=== PATIENT | male | born 1970 | race Caucasian/White ===

== ENCOUNTER → 2021-02-19 | Day surgery (SDC) | payer BC, OTHER ==
[~2021-02-19] VITALS: Ht 180.3 cm; Wt 104.3 kg
[~2021-02-19] MED LIST: ASPIRIN 81 MG CHEW (CHILDREN'S ASA) ONE; ASPIRIN 81 MG CHEW (CHILDREN'S ASA) PO SCH; ASPIRIN 81 MG CHEW (CHILDREN'S ASA) PO STA; ATROPINE INJECTION 1 MG/10 ML SYR (ABBOTT) ONE; CLOPIDOGREL 300 MG (PLAVIX) TABLET PO STA; HEParin (CATH LAB) 1,000 ML IV ONE; HEParin (CATH LAB) 2,000 ML IV ONE; HEParin 1000 UNIT/ML (10ML VIAL) FOR BOLUS IV ONE; HEParin 1000 UNIT/ML (10ML VIAL) FOR BOLUS IV SCH; HEParin 1000 UNIT/ML (10ML VIAL) FOR BOLUS ONE; HEParin DRIP 25000 UNIT/500ML 500 ML IV ONE; KCL 20 MEQ TAB (K-DUR) PO ONE; LIDOCAINE 1% INJ 20 ML 20 ML VIAL ONE; MIDAZOLAM 5 MG/5 ML (VERSED) VIAL ONE; NITRO DRIP 25000 MCG/D5W 250 ML IV ONE; NITROGLYCERIN 0.4 MG SL TABS BTL 25'S SL ONE; NITROGLYCERIN 0.4 MG SL TABS BTL 25'S SL PRN; NS IV 1000 ML 1,000 ML IV SCH; NS IV 1000 ML 1,000 ML IV STA; NS IV 1000 ML 1,000 ML ONE; PATIENT MAY USE OWN MEDS, ALL PO SCH; RT-ALBUTEROL/IPRATROPIUM 3 ML (DUONEB) VIAL INH ONE; fentaNYL INJ 100 MCG/2 ML AMP ONE; meTOprolol 5 MG/5 ML (LOPRESSOR) VIAL IV STA; meTOprolol 5 MG/5 ML (LOPRESSOR) VIAL ONE; meTOprolol TARTRATE 25 MG (LOPRESSOR) TABLET PO SCH; methylPREDNISolone 125 MG (Solu-MEDROL) VIAL IVP STA; morphine INJ 10 MG/ML 1ML (SYR OR VIAL) IVP STA
--- NOTE | 2021-02-19 04:43 | ED Dyspnea ---
General Chief Complaint: Respiratory Problems Stated Complaint: SOA Nursing Triage Note: PT AMBULATE TO ROOM FS05 WITH C/O SOB X1 MONTH AND NAUSEA. PT STATES HE WAS GOING TO GO THE CLINIC TOMORROW. PT REPORTS FEVER X3 DAYS AGO OF 99.9. Source of Information: Patient History of Present Illness Date Seen by Provider: February 19, 2021 Time Seen by Provider: 03:53 Initial Comments 50 yo male presenting to the ED with complaints of shortness of breath and coughing that has been going on for over a month. He has been having some nausea and felt like he had a fever few days ago. This morning he woke up around 3 AM and was having more difficulty breathing with nausea and pressure on his chest and burning in his chest. He felt like he could not catch his breath. He has been trying to quit smoking and cut down from 1 pack a day to a pack a month. He had a history of high blood pressure in the past but has not been on medicine for years. He does not have a primary care provider. His only allergy is to penicillin which causes a rash. He does not take any medications on a routine or regular basis. He has been coughing up some thick white sputum. He works at [employer] and has had ill contacts there since he works with the public. He lives by himself and has no close contacts that have been ill. Severity: Severe Prior Episodes/Possible Cause: No Prior Episodes Modifying Factors: Worse With Activity, Worse With Coughing Associated Symptoms: Anxiety, Chest Pain, Cough, Pain (burning and pressure in chest), Wheezing Allergies and Home Medications Allergies Coded Allergies: Penicillins (Verified Allergy, Unknown, Rash, 02/19/21) Patient Home Medication List Home Medication List Reviewed: Yes Review of Systems Review of Systems Constitutional: chills, diaphoresis, fever, malaise EENTM: hoarseness Respiratory: cough, dyspnea on exertion, phlegm, short of breath; No stridor; wheezing Cardiovascular: see HPI, chest pain (burning and pressure) Gastrointestinal: nausea; No vomiting Genitourinary: no symptoms reported Musculoskeletal: no symptoms reported Skin: no symptoms reported Psychiatric/Neurological: No Symptoms Reported Endocrine: No Symptoms Reported Hematologic/Lymphatic: No Symptoms Reported Past Ijznqfn-Jbcxhq-Ffchqy Hx Past Med/Social Hx: Reviewed Nursing Past Med/Soc Hx Patient Social History Alcohol Use: Denies Use Smoking Status: Current Everyday Smoker Type Used: Cigarettes 2nd Hand Smoke Exposure: Yes Recent Infectious Disease Expo: No Recent Hopitalizations: No Seasonal Allergies Seasonal Allergies: No Past Medical History Surgeries: Yes Adenoidectomy, Gallbladder, Tonsillectomy Respiratory: No Cardiac: Yes Hypertension Neurological: No Genitourinary: No Gastrointestinal: No Musculoskeletal: No Endocrine: No HEENT: No Cancer: No Psychosocial: No Integumentary: No Blood Disorders: No Family Medical History Reviewed and Corrections made Heart Disease, CAD Under 55 Years Old Physical Exam Vital Signs Vital Signs - First Documented 02/19/21 02/19/21 03:58 04:22 Temp 36.8 Pulse 107 Resp 18 B/P (MAP) 193/112 (139) Pulse Ox 94 O2 Delivery Room Air O2 Flow Rate 3.00 Capillary Refill : Less Than 3 Seconds Height, Weight, BMI Height: '" Weight: lbs. oz. kg; 32.00 BMI Method: General Appearance: Anxious, Mild Distress, Obese HEENT: PERRL/EOMI, Pharynx Normal Neck: Full Range of Motion, Normal Inspection, Non Tender, Supple; No Carotid Bruit Respiratory: Chest Non Tender, Decreased Breath Sounds, Rales (bases), Wheezing Cardiovascular: Regular Rate, Rhythm, No Murmur, Normal Peripheral Pulses Gastrointestinal: Normal Bowel Sounds, No Pulsatile Mass, Non Tender, Soft Rectal: Deferred Extremity: Normal Capillary Refill, No Calf Tenderness, No Pedal Edema Neurologic/Psychiatric: Alert, Oriented x3, cellar packer II-XII Norm as Tested Skin: Normal Color, Warm/Dry Lymphatic: No Adenopathy Focused Exam Lactate Level 02/19/21 04:16: Lactic Acid Level 1.06 Lactic Acid Level Laboratory Tests Test 02/19/21 04:16 Lactic Acid Level 1.06 MMOL/L (0.50-2.00) Progress/Results/Core Measures Results/Orders Lab Results Laboratory Tests Test 02/19/21 04:16 02/19/21 04:29 Range/Units White Blood Count 10.3 4.3-11.0 10^3/uL Red Blood Count 4.79 4.35-5.85 10^6/uL Hemoglobin 14.0 13.3-17.7 G/DL Hematocrit 42 40-54 % Mean Corpuscular Volume 88 80-99 FL Mean Corpuscular Hemoglobin 29 25-34 PG Mean Corpuscular Hemoglobin Concent 33 32-36 G/DL Red Cell Distribution Width 12.6 10.0-14.5 % Platelet Count 322 130-400 10^3/uL Mean Platelet Volume 9.3 7.4-10.4 FL Immature Granulocyte % (Auto) 0 % Neutrophils (%) (Auto) 66 42-75 % Lymphocytes (%) (Auto) 21 12-44 % Monocytes (%) (Auto) 10 0-12 % Eosinophils (%) (Auto) 3 0-10 % Basophils (%) (Auto) 1 0-10 % Neutrophils # (Auto) 6.8 1.8-7.8 X 10^3 Lymphocytes # (Auto) 2.1 1.0-4.0 X 10^3 Monocytes # (Auto) 1.0 0.0-1.0 X 10^3 Eosinophils # (Auto) 0.3 0.0-0.3 10^3/uL Basophils # (Auto) 0.1 0.0-0.1 10^3/uL Immature Granulocyte # (Auto) 0.0 0.0-0.1 10^3/uL Percent Immature Platelet Fraction 1.5 0.0-7.6 % Prothrombin Time 13.6 12.2-14.7 SEC INR Comment 1.0 0.8-1.4 Activated Partial Thromboplast Time 33 24-35 SEC Sodium Level 141 135-145 MMOL/L Potassium Level 3.3 L 3.6-5.0 MMOL/L Chloride Level 104 98-107 MMOL/L Carbon Dioxide Level 24 21-32 MMOL/L Anion Gap 13 5-14 MMOL/L Blood Urea Nitrogen 19 H 7-18 MG/DL Creatinine 1.22 0.60-1.30 MG/DL Estimat Glomerular Filtration Rate > 60 BUN/Creatinine Ratio 16 Glucose Level 121 H 70-105 MG/DL Lactic Acid Level 1.06 0.50-2.00 MMOL/L Calcium Level 8.7 8.5-10.1 MG/DL Corrected Calcium 8.9 8.5-10.1 MG/DL Magnesium Level 2.0 1.6-2.4 MG/DL Total Bilirubin 0.6 0.1-1.0 MG/DL Aspartate Amino Transf (AST/SGOT) 45 H 5-34 U/L Alanine Aminotransferase (ALT/SGPT) 40 0-55 U/L Alkaline Phosphatase 106 40-136 U/L Troponin I 2.98 *H <0.30 NG/ML C-Reactive Protein 3.15 H <0.50 MG/DL Pro-B-Type Natriuretic Peptide 4820.0 H <75.0 PG/ML Total Protein 7.4 6.4-8.2 GM/DL Albumin 3.8 3.2-4.5 GM/DL Blood Gas Puncture Site LT RADIAL Blood Gas Patient Temperature 36.7 Arterial Blood pH 7.43 7.37-7.43 Arterial Blood Partial Pressure CO2 37 35-45 MMHG Arterial Blood Partial Pressure O2 63 L 79-93 MMHG Arterial Blood HCO3 25 23-27 MMOL/L Arterial Blood Total CO2 25.7 21.0-31.0 MMOL/L Arterial Blood Oxygen Saturation 92 L 94-100 % Arterial Blood Base Excess 0.5 -2.5-2.5 MMOL/L Vasyl Test OK Blood Gas Ventilator Setting NO Blood Gas Inspired Oxygen 2L My Orders Orders - MEGHANN,TATY Moe MD Cbc With Automated Diff (02/19/21 04:05) Comprehensive Metabolic Panel (02/19/21 04:05) Blood Culture (02/19/21 04:05) Chest 1 View Ap/Pa Only (02/19/21 04:05) Albuterol/Ipra Inhalation Soln (Duoneb I (02/19/21 04:15) Magnesium (02/19/21 04:05) Ekg Tracing (02/19/21 04:05) O2 (02/19/21 04:05) Ed Iv/Invasive Line Start (02/19/21 04:05) Sputum Culture (02/19/21 04:05) Monitor-Rhythm Ecg Trace Only (02/19/21 04:05) Crp Fs (02/19/21 04:05) Lactic Acid Analyzer (02/19/21 04:05) Svn Small Volume Nebulizer (02/19/21 04:05) Troponin I Fs (02/19/21 04:05) Probnp Fs (02/19/21 04:05) Protime With Inr (02/19/21 04:05) Partial Thromboplastin Time (02/19/21 04:05) Arterial Blood Gas (02/19/21 04:05) Ns Iv 1000 Ml (Sodium Chloride 0.9%) (02/19/21 04:09) Methylprednisolone Sod Succ (Solu-Medrol (02/19/21 04:09) Nitroglycerin 0.4 Mg Btl 25's (Nitrostat (02/19/21 04:15) Aspirin Chewable Tablet (Baby Aspirin Ch (02/19/21 04:15) Aspirin Chewable Tablet (Baby Aspirin Ch (02/19/21 04:23) Metoprolol Tartrate Injection (Lopressor (02/19/21 04:23) Heparin Drip 30014 Unit/500ml (Heparin (02/19/21 04:30) Heparin (Bolus Per Protocol) (Heparin (B (02/19/21 04:23) Clopidogrel Tablet (Plavix Tablet) (02/19/21 04:28) Morphine Injection (Morphine Injection (02/19/21 04:35) Atropine Inj 1 Mg Syringe (Atropine Inj (02/19/21 05:01) Lidocaine 1% Inj 20 Ml (Xylocaine 1% Inj (02/19/21 05:01) Midazolam Injection (Versed Injection) (02/19/21 05:01) Fentanyl Inj (Sublimaze Injection) (02/19/21 05:01) Heparin (Bolus Per Protocol) (Heparin (B (02/19/21 05:01) Ns Iv 1000 Ml (Sodium Chloride 0.9%) (02/19/21 05:01) Nitro Drip 01904 Mcg/D5w (Nitroglycerin (02/19/21 05:01) Heparin (Pharmacy Customer Care Specialist) (Heparin (Pharmacy Customer Care Specialist)) (02/19/21 05:01) Nitroglycerin 0.4 Mg Btl 25's (Nitrostat (02/19/21 05:15) Medications Given in ED Current Medications Medications Dose Ordered Sig/Leslie Route Start Time Stop Time Status Last Admin Dose Admin Albuterol/ Ipratropium 3 ml ONCE ONCE INH 02/19/21 04:15 02/19/21 04:16 DC 02/19/21 04:24 3 ML Aspirin 81 mg STK-MED ONCE .ROUTE 02/19/21 04:15 02/19/21 04:23 DC 02/19/21 04:25 324 MG Heparin Sodium (Porcine) HEPARIN BOLUS ACS PROTOC... 0423 ONCE IV 02/19/21 04:23 02/19/21 04:28 DC 02/19/21 04:35 5,000 UNIT Nitroglycerin 0.4 mg STK-MED ONCE SL 02/19/21 04:15 02/19/21 04:23 DC 02/19/21 04:25 0.4 MG Vital Signs/I&O 02/19/21 02/19/21 02/19/21 03:58 04:22 04:55 Temp 36.8 Pulse 107 91 Resp 18 19 B/P (MAP) 193/112 (139) 168/102 Pulse Ox 94 94 O2 Delivery Room Air Nasal Cannula Nasal Cannula O2 Flow Rate 3.00 3.00 Blood Pressure Mean: 139 Progress Progress Note #1: Progress Note With patient having O2 sat 89 to 90% will order labs including blood cultures and lactic acid. Will place him on supplemental oxygen after obtaining an ABG. He is hypertensive and will check an EKG as well as cardiac enzymes with his complaint of chest pain and pressure. Order IV fluids for hydration and his tachycardia. DuoNeb breathing treatment for his shortness of breath and wheezing as well as hypoxia. Differential diagnosis includes pneumonia, COPD exacerbation, hypertensive crisis, myocardial infarction, congestive heart failure, Covid, pulmonary embolism Progress Note #2: Time: 04:13 Progress Note EKG obtained and shows ST elevation in leads V2 through V5. Patient continues to have chest pain and pressure in his chest. Add aspirin and nitroglycerin to the orders and verified with patient that he was ok with going to [facility] to see Cardiology. After confirming that the patient was okay with going to [place] for cardiology on the left the room to place orders for the aspirin, heparin, nitroglycerin, metoprolol. Page placed to Dr. Escoto at 0423 am and returned at 0425 am. He advised that he would prefer morphine for pain to the nitroglycerin since he would be ok with his blood pressure being a little higher. He requested Plavix, Heparin, Aspirin and will take pt to Pharm[facility]. On recheck of the patient he was feeling better on supplemental oxygen and after getting a single Nitroglycerin he has had improved pain in chest. Blood pressure still running high. Updated pt and nurses about the plan and orders from Dr. Escoto. EMS was contacted for transfer and Nursing Jewelry Enameler notified as well. Since pt had not been here before registration worked on getting his information to update his computer details. Progress Note #3: Time: 04:51 Progress Note Patient leaving with EMS for emergent transfer to [facility]. Progress Note #4: Time: 05:18 Progress Note CBC was not showing any acute significant abnormality and had normal platelets and Hgb/Hct. ABG shows pH 7.43, pCO2 37, pO2 63 on 2 Lpm with saturation 92%. Lactic acid of 1.06. On his chemistry his potassium was slightly low at 3.3. His creatinine was slightly elevated at 1.22. His troponin was elevated at 2.98 with a normal range less than 0.3. His proBNP was elevated to 4820. He also had an elevated CRP of 3.15. His coags were normal without acute significant abnormality. Initial ECG Impression Date: February 19, 2021 Initial ECG Impression Time: 04:13 Initial ECG Rate: 104 Initial ECG Rhythm: S.Tach Initial ECG Comparisson: No Previous ECG Available Comment Sinus tachycardia with a heart rate of 104 bpm. OR interval [address] elevation in leads V2 through V5. QT interval 348 ms with a QTc interval 458 ms. No prior tracing available for comparison. Diagnostic Imaging Diagonstic Imaging: Xray Plain Films/CT/US/NM/MRI: chest Comments On my review is 1 view chest x-ray has poor respiratory effort and findings for acute pulmonary vascular congestion. Reviewed: Reviewed by Me Critical Care Note Critical Care Total Time (minutes) 55 minutes Progress 55 minutes of critical care time was spent with the patient. This time excludes separately billable procedures. Time was spent obtaining history from the patient, ordering test and reviewing results, ordering interventions and reviewing response, discussion with patient and consultants, documentation in the chart. Patient was at risk of significant morbidity and possible mortality from failure of his respiratory and cardiac systems. He required constant direct care to stabilize and manage the patient and his acute medical conditions. Departure Communication (Admissions) Time/Spoke to Admitting Phy: 04:25 d/w Dr. Escoto with Cardiology and will have pt get Plavix, Aspirin, Heparin, Morphine. Emergent transfer to color laboratory technician Impression Primary Impression: STEMI (ST elevation myocardial infarction) Qualified Codes: I21.3 - ST elevation (STEMI) myocardial infarction of unspecified site Additional Impressions: Dyspnea Qualified Codes: R06.03 - Acute respiratory distress Hypoxia Disposition: 30 STILL A PATIENT Condition: Critical Admissions Decision to Admit Reason: Admit from ER (General) Decision to Admit/Date: February 19, 2021 Time/Decision to Admit Time: 04:25 Departure-Patient Inst. Referrals: NO,LOCAL PHYSICIAN (PCP/Family) Primary Care Physician TATY ZAVALETA MD February 19, 2021 04:42
[2021-02-19 04:49] LABS: ABG BASE EXCESS 0.5 MMOL/L (-2.5-2.5); ABG OXYGEN SATURATION 92 % (94-100); ABG PCO2 37 MMHG (35-45); ABG PH 7.43 (7.37-7.43); ABG PO2 63 MMHG (79-93); ABG TCO2 25.7 MMOL/L (21.0-31.0)
[2021-02-19 04:50] LABS: ALLENS TEST OK
[2021-02-19 04:51] LABS: HEMATOCRIT 42 % (40-54); MEAN CORPUSCULAR HEMOGLOBIN 29 PG (25-34); WHITE BLOOD COUNT 10.3 10^3/uL (4.3-11.0)
[2021-02-19 04:51] LABS: INSPIRED O2 2L; PATIENT TEMP 36.7; VENTILATOR NO
[2021-02-19 04:52] LABS: BASOPHILS % (AUTO) 1 % (0-10); EOSINOPHILS % (AUTO) 3 % (0-10); LYMPHOCYTES # (AUTO) 2.1 X 10^3 (1.0-4.0); LYMPHOCYTES % (AUTO) 21 % (12-44); MEAN CORPUSCULAR HGB CONC 33 G/DL (32-36); MEAN CORPUSCULAR VOLUME 88 FL (80-99); MEAN PLATELET VOLUME 9.3 FL (7.4-10.4); MONOCYTES % (AUTO) 10 % (0-12); NEUTROPHILS # (AUTO) 6.8 X 10^3 (1.8-7.8); NEUTROPHILS % (AUTO) 66 % (42-75); PLATELET COUNT 322 10^3/uL (130-400)
[2021-02-19 04:53] LABS: BASOPHILS # (AUTO) 0.1 10^3/uL (0.0-0.1); EOSINOPHILS # (AUTO) 0.3 10^3/uL (0.0-0.3)
[2021-02-19 04:55] VITALS: BP 168/102
[2021-02-19 05:04] LABS: PROTHROMBIN TIME PATIENT 13.6 SEC (12.2-14.7)
[2021-02-19 05:13] LABS: BILIRUBIN,TOTAL 0.6 MG/DL (0.1-1.0); BUN/CREATININE RATIO 16; CALCIUM 8.7 MG/DL (8.5-10.1); CARBON DIOXIDE 24 MMOL/L (21-32); CHLORIDE 104 MMOL/L (98-107); CREATININE SERUM 1.22 MG/DL (0.60-1.30); GFR ESTIMATED > 60; GLUCOSE 121 MG/DL (70-105); POTASSIUM 3.3 MMOL/L (3.6-5.0); SODIUM 141 MMOL/L (135-145)
[2021-02-19 05:14] LABS: ALANINE AMINOTRANSFERASE 40 U/L (0-55); ALBUMIN 3.8 GM/DL (3.2-4.5); ALKALINE PHOSPHATASE 106 U/L (40-136); TOTAL PROTEIN 7.4 GM/DL (6.4-8.2)
--- NOTE | 2021-02-19 05:53 | Diagnostic Imaging Report ---
INDICATION: short of breath, cough, fever. Symptoms x1 month. TECHNIQUE: Single view chest 4:15 AM. CORRELATION STUDY: None FINDINGS: Heart size enlarged. Vasculature slightly prominent as well. Slight fullness of the right hilum. Question minimal areas of opacity in the mid and lower lung [place]. IMPRESSION: 1. Cardiac enlargement with borderline vasculature are somewhat accentuated by technique. Component of mild fluid overload not excluded. Additionally, there is faint bilateral pulmonary opacity that may reflect edema versus early infiltrate. Follow-up imaging would be recommended if indicated. Dictated by: Dictated on workstation # [id number]
--- NOTE | 2021-02-19 06:46 | Cardiology History & Physical ---
HPI-Cardiology Cardiology H&P Date of Admission 02/19/21 Primary Care Physician Marjorie,Local Physician Attending Physician Adonis Escoto MD, MA FACP [facility] Consulting Physician ANJU CC: Chest pain HPI 50 yo man with several days of waxing and waning chest discomfort who had onset of severe midsternal discomfort early am today that awoke him from his sleep. It was associated with some shortness of breath and diaphoresis but no palpitations or syncope. No leg swelling. Presented to [facility]. Found to have ST elevation. Treated with supple oxygen, s/l NTG, oral ASA and clopidogrel, and iv heparin. He was advised urgent cardiac cath to which he provided consent. Then transferred to this hospital. Pain much improved by the time of arrival to this hospital. Review of Systems-Cardiology Review of Systems Constitutional: malaise, tiredness; No weight loss, No weight gain Eyes: No vision change Ears/Nose/Throat: No ear discharge, No nasal drainage, No recent hearing loss Respiratory: As described under HPI Cardiovascular: As described under HPI Gastrointestinal: No diarrhea, No nausea Genitourinary: No dysuria, No hematuria, No urine frequency changes Musculoskeletal: No back pain, No joint pain Skin: No rash, No ulcerations Psychiatric/Neurological: No seizure, No focal weakness, No syncope Hematologic: No bleeding abnormalities ACG-Hrbsre-Ppohsl Hx Patient Social History Smoking Status: Current Everyday Smoker 2nd Hand Smoke Exposure: Yes Past Medical History PMH As described under Assessment. Family Medical History Family Medical History: Father and a brother had RI at age less than 50 Allergies and Home Medications Allergies Coded Allergies: Penicillins (Verified Allergy, Unknown, Rash, 02/19/21) Patient Home Medication List Home Medication List Reviewed: Yes Physical Exam-Cardiology Physical Exam Vital Signs/I&O 02/19/21 02/19/21 02/19/21 03:58 04:22 04:55 Temp 36.8 Pulse 107 91 Resp 18 19 B/P (MAP) 193/112 (139) 168/102 Pulse Ox 94 94 O2 Delivery Room Air Nasal Cannula Nasal Cannula O2 Flow Rate 3.00 3.00 Capillary Refill : Less Than 3 Seconds Constitutional: AAO x 3, well-developed, well-nourished HEENT: EOMI, hearing is well preserved; No xanthelasmas are seen Neck: carotid pulses are 2 + bilaterally, with good upstrokes Respiratory: No accessory muscle use; other (fair to good, bilateral air entry) Cardiovascular: regular rate-rhythm, S1 and S2, systolic murmur (soft CASEY at card base) Gastrointestinal: No tender; soft; No guarding, No rebound; audible bowel sounds Extremities: No clubbing, No cyanosis, No significant edema Neurologic/Psychiatric: oriented x 3, other (moves all limbs equally) Skin: No rash on exposed areas, No ulcerations on exposed areas Data Review Labs Laboratory Tests 02/19/21 04:16: White Blood Count 10.3, Red Blood Count 4.79, Hemoglobin 14.0, Hematocrit 42, Mean Corpuscular Volume 88, Mean Corpuscular Hemoglobin 29, Mean Corpuscular Hemoglobin Concent 33, Red Cell Distribution Width 12.6, Platelet Count 322, Mean Platelet Volume 9.3, Immature Granulocyte % (Auto) 0, Neutrophils (%) (Auto) 66, Lymphocytes (%) (Auto) 21, Monocytes (%) (Auto) 10, Eosinophils (%) (Auto) 3, Basophils (%) (Auto) 1, Neutrophils # (Auto) 6.8, Lymphocytes # (Auto) 2.1, Monocytes # (Auto) 1.0, Eosinophils # (Auto) 0.3, Basophils # (Auto) 0.1, Immature Granulocyte # (Auto) 0.0, Percent Immature Platelet Fraction 1.5, Prothrombin Time 13.6, INR Comment 1.0, Activated Partial Thromboplast Time 33, Sodium Level 141, Potassium Level 3.3L, Chloride Level 104, Carbon Dioxide Level 24, Anion Gap 13, Blood Urea Nitrogen 19H, Creatinine 1.22, Estimat Glomerular Filtration Rate > 60, BUN/Creatinine Ratio 16, Glucose Level 121H, Lactic Acid Level 1.06, Calcium Level 8.7, Corrected Calcium 8.9, Magnesium Level 2.0, Total Bilirubin 0.6, Aspartate Amino Transf (AST/SGOT) 45H, Alanine Aminotransferase (ALT/SGPT) 40, Alkaline Phosphatase 106, Troponin I 2.98*H, C-Reactive Protein 3.15H, Pro-B-Type Natriuretic Peptide 4820.0H, Total Protein 7.4, Albumin 3.8 02/19/21 04:29: Blood Gas Puncture Site LT RADIAL, Blood Gas Patient Temperature 36.7, Arterial Blood pH 7.43, Arterial Blood Partial Pressure CO2 37, Arterial Blood Partial Pressure O2 63L, Arterial Blood HCO3 25, Arterial Blood Total CO2 25.7, Arterial Blood Oxygen Saturation 92L, Arterial Blood Base Excess 0.5, Vasyl Test OK, Blood Gas Ventilator Setting NO, Blood Gas Inspired Oxygen 2L A/P-Cardiology Assessment/Admission Diagnosis Ac anterolateral STEMI - Emergency card cath on 02/19/21: critical ostial lesion of an LAD that trifurcates at the site of the lesion, 70% mid-vessel LCx, 80-90% stenosis in proximal portion of a posterolateral branch of a dominant RCA, LVEDP 28 mmHg, anteroapical akinesis to dyskinesis, LVEF 25% Chronic tobacco use Admission Status: Observation Discussion and Recomendations * The lesion is not suitable for percutaneous intervention (being a trifurcation lesion at the ostium of a large dual LAD and diagonal system) * IABP * Treated with beta-lisa and antiplatelet agents and heparin * I spoke with Dr Ornelas of the CV service at [facility] and the patient is being transferred to his surface. Dr Ornelas asked me to also speak with the Cardiology service at [facility]. Accordingly, I also spoke with Dr Spicer who also recommends transfer to CV surgery at [facility] * I spoke with Mr. Bermudez and explained his card cath findings and the treatment plan. He understands and concurs * Advised to quit tobacco useADONIS Dean MD FACP [facility] CCDS February 19, 2021 06:46
--- NOTE | 2021-02-19 06:59 | Cardiology Discharge Summary ---
Diagnosis/Chief Complaint Date of Admission 02/19/21 Date of Discharge 02/19/21 Final/Discharge Diagnosis Ac anterolateral STEMI - Emergency card cath on 02/19/21: critical ostial lesion of an LAD that trifurcates at the site of the lesion, 70% mid-vessel LCx, 80-90% stenosis in proximal portion of a posterolateral branch of a dominant RCA, LVEDP 28 mmHg, anteroapical akinesis to dyskinesis, LVEF 25% Chronic tobacco use Chief Complaint/HPI Chief Complaint/HPI CC: Chest pain HPI 50 yo man with several days of waxing and waning chest discomfort who had onset of severe midsternal discomfort early am today that awoke him from his sleep. It was associated with some shortness of breath and diaphoresis but no palpitations or syncope. No leg swelling. Presented to [facility]. Found to have ST elevation. Treated with supple oxygen, s/l NTG, oral ASA and clopidogrel, and iv heparin. He was advised urgent cardiac cath to which he provided consent. Then transferred to this hospital. Pain much improved by the time of arrival to this hospital. Hosp course Emergency cath performed after explaining the procedure and its rationale and after he indicated consent. Results as noted above. Being transferred to [facility] for consideration of CABG. I have spoken with Dr Ornelas of the CV surg svce and Dr Spcier of Cardiology. I have also spoken with Mr Lara who consents Discharge Summary Procedures None. Hospital Course Pending Labs Laboratory Tests 02/19/21 04:16: White Blood Count 10.3, Red Blood Count 4.79, Hemoglobin 14.0, Hematocrit 42, Mean Corpuscular Volume 88, Mean Corpuscular Hemoglobin 29, Mean Corpuscular Hemoglobin Concent 33, Red Cell Distribution Width 12.6, Platelet Count 322, Mean Platelet Volume 9.3, Immature Granulocyte % (Auto) 0, Neutrophils (%) (Auto) 66, Lymphocytes (%) (Auto) 21, Monocytes (%) (Auto) 10, Eosinophils (%) (Auto) 3, Basophils (%) (Auto) 1, Neutrophils # (Auto) 6.8, Lymphocytes # (Auto) 2.1, Monocytes # (Auto) 1.0, Eosinophils # (Auto) 0.3, Basophils # (Auto) 0.1, Immature Granulocyte # (Auto) 0.0, Percent Immature Platelet Fraction 1.5, Prothrombin Time 13.6, INR Comment 1.0, Activated Partial Thromboplast Time 33, Sodium Level 141, Potassium Level 3.3, Chloride Level 104, Carbon Dioxide Level 24, Anion Gap 13, Blood Urea Nitrogen 19, Creatinine 1.22, Estimat Glomerular Filtration Rate > 60, BUN/Creatinine Ratio 16, Glucose Level 121, Lactic Acid Level 1.06, Calcium Level 8.7, Corrected Calcium 8.9, Magnesium Level 2.0, Total Bilirubin 0.6, Aspartate Amino Transf (AST/SGOT) 45, Alanine Aminotransferase (ALT/SGPT) 40, Alkaline Phosphatase 106, Troponin I 2.98, C-Reactive Protein 3.15, Pro-B-Type Natriuretic Peptide 4820.0, Total Protein 7.4, Albumin 3.8 02/19/21 04:29: Blood Gas Puncture Site LT RADIAL, Blood Gas Patient Temperature 36.7, Arterial Blood pH 7.43, Arterial Blood Partial Pressure CO2 37, Arterial Blood Partial Pressure O2 63, Arterial Blood HCO3 25, Arterial Blood Total CO2 25.7, Arterial Blood Oxygen Saturation 92, Arterial Blood Base Excess 0.5, Vasyl Test OK, Blood Gas Ventilator Setting NO, Blood Gas Inspired Oxygen 2L Discussion & Recommendations Home Medications Reviewed patient Home Medication Reconciliation performed by pharmacy medication reconciliations costume technician and/or nursing. Patients Allergies have been reviewed. Discharge Home Medications: Reviewed and agree with Discharge Medication list on patient's Discharge Instruction sheet ASHLEY MOONEY MD FACP [facility] CCDS February 19, 2021 06:59
--- NOTE | 2021-02-19 08:30 | CARDIAC CATHETERIZATION ---
DATE OF SERVICE: 02/19/2021 CARDIAC CATHETERIZATION REPORT INDICATION FOR PROCEDURE: The patient is a 50-year-old gentleman with a history of chronic tobacco use (smoking of cigarettes), who presented with chest pain to the [facility] and was found to have ST elevation in the anterolateral leads. He was advised emergency cardiac catheterization and was transferred to this hospital. We discussed the procedure with him and its rationale. He consented for us to proceed. DESCRIPTION OF PROCEDURE: The right groin was prepared and draped in the usual sterile fashion. Lidocaine 1% was used for local anesthesia. Modified Seldinger technique was used to advance a 6-[place] sheath in the right femoral artery. A 6-[place] JL4 guide catheter was used to perform angiography of the left coronary system. A 6-[place] JR4 catheter was used for right coronary angiography. A 6-[place] pigtail catheter was used for left heart catheterization and left ventricular angiography. BALLOON PUMP PLACEMENT Following completion of the diagnostic procedure, we exchanged the right groin sheath out for a balloon pump sheath and a balloon pump catheter was inserted with the tip of the catheter just distal to the site of origin of the left subclavian artery and balloon ending above the origin of the renal arteries. A 1:1 augmentation was achieved. He tolerated the procedure well. He remained hemodynamically stable. At the end of the procedure, he was not reporting any significant chest discomfort. HEMODYNAMICS: Left ventricular end-diastolic pressure following coronary angiography was 28 mmHg. There is no significant pressure gradient on pullback across the aortic valve. Ascending aortic pressure was 149/101 with a mean of 121 mmHg. LEFT VENTRICULAR ANGIOGRAPHY: Left ventricular angiography was carried out in the right anterior oblique projection. There is anteroapical akinesis to dyskinesis. Left ventricular ejection fraction is approximately 25%. CORONARY ANGIOGRAPHY: Left main coronary artery does not exhibit significant obstructive disease. Left anterior descending artery exhibits 99% ostial stenosis. This is a trifurcation lesion, which involves a dual left anterior descending artery and a diagonal system. The left circumflex artery has approximately 70% stenosis in mid portion. The right coronary artery is large and dominant and ectatic and has diffuse moderate plaque. The posterolateral branch of the right coronary artery exhibits approximately 80% proximal stenosis. CONCLUSIONS: 1. Multivessel coronary artery disease. The culprit lesion is an ostial, trifurcation stenosis of left anterior descending-diagonal system. The left circumflex artery has approximately 70% mid vessel stenosis. The right coronary artery is ectatic and has approximately 80% stenosis in the distal posterolateral branch. 2. Impairment of left ventricular systolic function with ejection fraction approximately 25%. 3. Anteroapical akinesis to dyskinesis. 4. Elevated left ventricular end-diastolic pressure. 5. Balloon pump placement DISCUSSION AND RECOMMENDATIONS: The critical ostial stenosis of the left anterior descending artery is a trifurcation lesion in each vessel arising at this trifurcation is large and prominent. This lesion does not appear to be well suited to percutaneous intervention. We started a balloon pump. The patient is currently hemodynamically stable and not experiencing chest discomfort. We called Dr. Ornelas of the cardiovascular surgical services at [facility]. He accepted, but also asked us to speak with the kineseologist sculpture conservator. Accordingly, we spoke with Dr. Spicer of the cardiology service at [facility]. Dr. Spicer advise transfer to the cardiovascular surgical service, which we had already arranged. We spoke with the patient and he concurs with this plan. Arrangements for transfer are being made at this time. He has been treated with antiplatelet agents and beta-lisa and intravenous heparin. At the time of this dictation, the weather is not suitable for air transport. He will go via a ground ambulance. Job ID: [id number] DocumentID: [id number] Dictated Date: 02/19/2021 07:09:16 Automation Driver Date: 02/19/2021 08:29:36 Dictated By: ASHLEY MOONEY MD, MA, FACP, FACC, MTDD
--- NOTE | 2021-02-19 09:54 | Cardiac Procedure Note-CS/ASA ---
Pre-Procedure Note Pre-Op Procedure Note H&P Reviewed The H&P was reviewed, patient examined and no changes noted. Date H&P Reviewed: February 19, 2021 Time H&P Reviewed: 05:15 Conscious Sedation Pre-Proced Time 05:15 ASA Score 3 For ASA 3 and 4: Consider anesthesia and medical clearance. Also, for patients with a history of failed moderate sedation consider anesthesia. Airway Lungs Heart ASA score ASA 1: a normal healthy patient ASA 2: a patient with a mild systemic disease (mid diabetes, controlled hypertension, obesity ASA 3: a patient with a severe systemic disease that limits activity (angina, COPD, prior Myocardial infarction) ASA 4: a patient with an incapacitating disease that is a constant threat to life (CHF, renal failure) ASA 5: a moribund patient not expected to survive 24 hrs. (ruptured aneurysm) ASA 6: a declared brain- patient whose organs are being harvested. For emergent operations, add the letter E after the classification Mallampati Classification Grade 2 Sedation Plan Analgesia, Amnesia, Plan communicated to team members, Discussed options with patient/fam, Discussed risks with patient/fam The patient is an appropriate candidate to undergo the planned procedure, sedation, and anesthesia. The patient immediately re-assessed prior to indication. ASHLEY MOONEY MD FACP FAC CCDS February 19, 2021 09:54
== END ==
LOC: ER FS 03:53 → CATH 05:20
PROVIDERS: ATTEND Internal Medicine Cardiovascular Disease
DX: I21.09 ST elevation (STEMI) myocardial infarction involving other coronary artery of anterior wall (principal); I25.10 Atherosclerotic heart disease of native coronary artery without angina pectoris; I10 Essential (primary) hypertension; R06.03 Acute respiratory distress; R09.02 Hypoxemia; R29.898 Other symptoms and signs involving the musculoskeletal system; G24.9 Dystonia, unspecified; F17.210 Nicotine dependence, cigarettes, uncomplicated; Z90.89 Acquired absence of other organs; Z88.0 Allergy status to penicillin
CPT/HCPCS: 33967; 36415; 71045; 80053; 82805; 83605; 83735; 83880; 84484; 85025; 85610; 85730; 86141; 87040; 93005; 93041; 93458; 99291; C1894

== ENCOUNTER → 2022-10-15 | Outpatient (CLI) | payer BC, MEDICAID, OTHER ==
[~2022-10-15] VITALS: Ht 180 cm; Wt 128.0 kg
[~2022-10-15] MED LIST changes: -ASPIRIN 81 MG CHEW (CHILDREN'S ASA) ONE; -ASPIRIN 81 MG CHEW (CHILDREN'S ASA) PO SCH; -ASPIRIN 81 MG CHEW (CHILDREN'S ASA) PO STA; -ATROPINE INJECTION 1 MG/10 ML SYR (ABBOTT) ONE; +CATHETER FLUSH 10 ML SYR IVP PRN; -CLOPIDOGREL 300 MG (PLAVIX) TABLET PO STA; -HEParin (CATH LAB) 1,000 ML IV ONE; -HEParin (CATH LAB) 2,000 ML IV ONE; -HEParin 1000 UNIT/ML (10ML VIAL) FOR BOLUS IV ONE; -HEParin 1000 UNIT/ML (10ML VIAL) FOR BOLUS IV SCH; -HEParin 1000 UNIT/ML (10ML VIAL) FOR BOLUS ONE; -HEParin DRIP 25000 UNIT/500ML 500 ML IV ONE; -KCL 20 MEQ TAB (K-DUR) PO ONE; -LIDOCAINE 1% INJ 20 ML 20 ML VIAL ONE; -MIDAZOLAM 5 MG/5 ML (VERSED) VIAL ONE; -NITRO DRIP 25000 MCG/D5W 250 ML IV ONE; -NITROGLYCERIN 0.4 MG SL TABS BTL 25'S SL ONE; -NITROGLYCERIN 0.4 MG SL TABS BTL 25'S SL PRN; -NS IV 1000 ML 1,000 ML IV SCH; -NS IV 1000 ML 1,000 ML IV STA; -NS IV 1000 ML 1,000 ML ONE; -PATIENT MAY USE OWN MEDS, ALL PO SCH; +REGADENOSON 0.4 MG/5 ML SYR (LEXISCAN) IV ONE; -RT-ALBUTEROL/IPRATROPIUM 3 ML (DUONEB) VIAL INH ONE; -fentaNYL INJ 100 MCG/2 ML AMP ONE; -meTOprolol 5 MG/5 ML (LOPRESSOR) VIAL IV STA; -meTOprolol 5 MG/5 ML (LOPRESSOR) VIAL ONE; -meTOprolol TARTRATE 25 MG (LOPRESSOR) TABLET PO SCH; -methylPREDNISolone 125 MG (Solu-MEDROL) VIAL IVP STA; -morphine INJ 10 MG/ML 1ML (SYR OR VIAL) IVP STA
[2022-10-15 09:20] VITALS: BP 180/100
--- NOTE | 2022-10-15 11:50 | Cardiology Stress Test Report ---
Stress Test Report Date of Procedure/Referring: Date of Procedure: Oct 15, 2022 PCP No,Local Physician Admitting Physician Admitting Physician: Attending Physician: Katharine Stewart Indications: CP Baseline Heart Rate: 77 Baseline Blood Pressure: Blood Pressure Systolic: 180 Blood Pressure Diastolic: 100 Baseline Vitals Vital Signs Date Time Temp Pulse Resp B/P (MAP) Pulse Ox O2 Delivery O2 Flow Rate FiO2 10/15/22 09:20 85 180/100 (126) 99 Baseline EKG: Baseline EKG: NSR Summary After explaining the procedure to the patient, he signed a consent and then brought to the stress nuclear laboratory. Patient received 0.4 mg Lexiscan for stress test, ECG, heart rate and blood pressure were monitored continuously. Resting and stress dose of radio tracer were injected, imaging was acquired and reviewed in short axis, horizontal long axis and vertical long axis views. TID: 1.21 SSS: 6 SDS: 5 EF: 35 1. Patient tolerated Lexiscan well 2. Reversible ischemia involving the apex, anterior apical and inferoapical segments. 3. Transient ischemic dilatation 1.21 4. Diffuse left ventricular hypokinesia with ejection fraction 35% Copy Copies To 1: [facility]/KRISTIN DEAN MD Oct 15, 2022 11:50
== END ==
LOC: CARD 08:30
PROVIDERS: ATTEND Physician Assistant
DX: R07.9 Chest pain, unspecified (principal)
CPT/HCPCS: 78452; 93017; A9502

== ENCOUNTER → 2022-10-16 | Outpatient (CLI) | payer BC, MEDICAID, OTHER | LOC: CARDFS 11:36 | PROVIDERS: ATTEND Physician Assistant | DX: R07.9 Chest pain, unspecified (principal) | CPT/HCPCS: 93306 ==

== ENCOUNTER 2022-10-29 06:40 | Day surgery (SDC) | payer OTHER ==
[~2022-10-29] VITALS: Ht 180.3 cm; Wt 128.0 kg
[2022-10-29] VITALS (11 sets, daily range): BP systolic 156–191; BP diastolic 101–116
[2022-10-29] MEDS ORDERED: HEParin (CATH LAB) 2,000 ML IV ONE (07:08)
[2022-10-29] MEDS ORDERED: NS IV 1000 ML 1,000 ML ONE (07:08)
[2022-10-29] MEDS ORDERED: LIDOCAINE 1% INJ 20 ML VIAL ONE (07:08)
[2022-10-29] MEDS ORDERED: NS IV 1000 ML 1,000 ML IV SCH ×2 (07:15→10:00)
[2022-10-29 08:07] LABS: HEMATOCRIT 48 % (40-54); HEMOGLOBIN 16.1 g/dL (13.3-17.7); MEAN CORPUSCULAR HEMOGLOBIN 30 pg (25-34); MEAN CORPUSCULAR HGB CONC 34 g/dL (32-36); MEAN CORPUSCULAR VOLUME 88 fL (80-99); MEAN PLATELET VOLUME 8.9 fL (9.0-12.2); PLATELET COUNT 271 10^3/uL (130-400); WHITE BLOOD COUNT 7.4 10^3/uL (4.3-11.0)
[2022-10-29] MEDS ORDERED: SERT-413 PO (08:20)
[2022-10-29] MEDS ORDERED: ASPI-999 PO (08:20)
[2022-10-29] MEDS ORDERED: CYCL10TA25 PO (08:20)
[2022-10-29] MEDS ORDERED: LOSA100T57 PO (08:20)
[2022-10-29] MEDS ORDERED: MTP25TSR PO (08:20)
[2022-10-29] MEDS ORDERED: FURO40TA4 PO (08:20)
[2022-10-29] MEDS ORDERED: EMPA10TA PO (08:20)
--- NOTE | 2022-10-29 08:22 | Diagnostic Imaging Report ---
INDICATION: Abnormal stress test, coronary artery disease. Frontal chest obtained at 7:56 a.m. and compared with 03/01/2021. There is cardiomegaly and poststernotomy change. There is mild central vascular prominence without ruth edema. There is no consolidation or pleural fluid. IMPRESSION: Cardiomegaly and postoperative changes. No focal infiltrate or pneumothorax or pleural fluid. Dictated by: Dictated on workstation # [id number]
[2022-10-29] MEDS ORDERED: fentaNYL INJ 100 MCG/2 ML AMP ONE (08:26)
[2022-10-29] MEDS ORDERED: MIDAZOLAM 5 MG/5 ML (VERSED) VIAL ONE (08:26)
[2022-10-29 08:29] LABS: BILIRUBIN,TOTAL 0.7 MG/DL (0.1-1.0); CALCIUM 9.6 MG/DL (8.5-10.1); CREATININE SERUM 1.19 MG/DL (0.60-1.30); POTASSIUM 4.1 MMOL/L (3.6-5.0); TOTAL PROTEIN 7.5 GM/DL (6.4-8.2)
[2022-10-29 08:38] LABS: PROTHROMBIN TIME PATIENT 13.3 SEC (12.2-14.7)
--- NOTE | 2022-10-29 09:36 | Cardiac Procedure Note-CS/ASA ---
Pre-Procedure Note Pre-Op Procedure Note Date of Available H&P: Oct 20, 2022 Date H&P Reviewed: Oct 29, 2022 Time H&P Reviewed: 08:45 History & Physical: H&P Reviewed, Patient Examed, No changes noted Pre-Operative Diagnosis: CAD Conscious Sedation Pre-Proced Time 08:45 ASA Score 3 For ASA 3 and 4: Consider anesthesia and medical clearance. Also, for patients with a history of failed moderate sedation consider anesthesia. Airway Lungs Heart ASA score ASA 1: a normal healthy patient ASA 2: a patient with a mild systemic disease (mid diabetes, controlled hypertension, obesity ASA 3: a patient with a severe systemic disease that limits activity (angina, COPD, prior Myocardial infarction) ASA 4: a patient with an incapacitating disease that is a constant threat to life (CHF, renal failure) ASA 5: a moribund patient not expected to survive 24 hrs. (ruptured aneurysm) ASA 6: a declared brain- patient whose organs are being harvested. For emergent operations, add the letter E after the classification Mallampati Classification Grade 3 Sedation Plan Analgesia, Amnesia, Plan communicated to team members, Discussed options with patient/fam, Discussed risks with patient/fam The patient is an appropriate candidate to undergo the planned procedure, sedation, and anesthesia. The patient immediately re-assessed prior to indication. KRISTIN PAUL MD Oct 29, 2022 09:36
[2022-10-29] MEDS ORDERED: meTOprolol 5 MG/5 ML (LOPRESSOR) VIAL ONE (09:47)
[2022-10-29] MEDS ORDERED: PATIENT MAY USE OWN MEDS, ALL PO SCH (10:00)
--- NOTE | 2022-10-29 10:03 | Discharge Inst-Post CATH ---
Discharge Inst-CATH/EP Problems Reviewed?: Yes Post Cardiac Cath/EP D/C Inst Follow Up/Plan Appointment with Dr. Aguilar's office in 2 to 4 weeks <b>CARDIAC CATH/EP PROCEDURE DISCHARGE INSTRUCTIONS</b> ACTIVITY * Go Home directly and rest. * Limit activity of the leg (or wrist if it was used) for 7 days including aer obics, swimming, jogging, bicycling, etc. * Restrict stair-climbing for 7 days if possible, if not, climb up with your non-cath leg, then bring together on the same step. * Avoid lifting, pushing, pulling or excessive movement of the affected extremi ty for 7 days. * Customary sexual activity may be resumed after 2 days-use caution not to use a position that strains or causes pain to the affected extremity. * No driving for 24 hours. * NO SMOKING. * Avoid straining for bowel movements for 7 days. * Gentle walking on level ground is allowed. * Returning to work will depend on the type of procedure and the results. Your doctor will discuss this with you. CALL YOUR DOCTOR FOR ANY OF THE FOLLOWING: *If bleeding from the puncture site occurs- Apply gentle pressure to site with clean cloth and call your doctor or EMS. * If a knot or lump forms under the skin, increases in size, or causes pain. * If bruising appears to be worsening or moving further down your leg instead of disappearing. * Temperature above 101 F. CARE OF YOUR GROIN INCISION; * Bruising or purple discoloration of the skin near the puncture site is common. * You may shower only, no bathtub bathing for 5 days. Be careful to avoid slipping as your leg may feel stiff. * If a closure device was used on your femoral artery, please see the attached guide regarding care of the device and your leg. * Leave dressing on FOR 24 hours. CARE OF YOUR WRIST INCISION; * Bruising or purple discoloration of the skin near the puncture site is common. * You may shower. * DO NOT submerge wrist. * Leave dressing on FOR 24 hours. KRISTNI AGUILAR MD Oct 29, 2022 10:03
--- NOTE | 2022-10-29 10:09 | Cardiac Cath Report ---
Cardiac Cath Report Physician (s)/Paraprofessional Interpreter (s) Physician KRISTIN PAUL MD Pre-Procedure Diagnosis Pre-Procedure Diagnosis: CAD Post-Procedure Note Procedure Start Date: Oct 29, 2022 Name of Procedure: Left heart catheterization Vein graft angiogram DIOP angiogram Findings/Procedure Note PROCEDURE NOTE: 52 years old gentleman with history of coronary artery disease, CABG, had abnormal stress test, scheduled for cardiac catheterization possible PTCA. After explaining the procedure to the patient, all pros and cons were explained, all questions were answered. The patient signed the consent and then he was placed on the cardiac catheterization laboratory. Groin was prepped SL fashion local anesthesia was used. Sheath placed in the right femoral artery. Fabricio right and left catheter were used to access the coronary system.Vein Graft evaluated. DIOP evaluated. Fabricio right was prolapsed to the left ventricular cavity, pressure was measured At the end of the procedure the sheath was removed. Closure device was deployed FINDINGS: Hemodynamics LV 152/8, end-diastolic pressure of 8 Aorta 160/91 mean of 117 ANATOMY: Left Main is free of obstructive disease Left Anterior Descending is occluded with patent DIOP to LAD and vein graft to D1 and D2 Left Circumflex has severe stenosis at the midportion, patent vein graft to the circumflex artery Right Coronary Artery has severe diffuse ectasia with severe ostial stenosis, patent radial artery to the right PDA DIOP to LAD is patent with excellent flow distally Vein Graft evaluation showed 2 markers of vein graft The lower graft is a radial artery to the right PDA that is patent with excellent flow distally The upper vein graft is the vein graft to the second diagonal artery and to the obtuse marginal branch. Off that bypass graft another vein graft is attached to the first diagonal branch they were all patent with excellent flow LV Gram was not done, pressure was measured CONCLUSION: 1. Severe chitina coronary artery disease with occlusion of the LAD severe stenosis in the proximal circumflex artery and ostial right coronary artery with diffuse ectasia in the right coronary artery, corrected with patent DIOP to LAD, patent radial artery to the right PDA and patent jump graft to D1, D2 and circumflex with excellent flow distally 2. Normal left ventricular end-diastolic pressure DISCUSSION AND RECOMMENDATION: Continue to maximize medical therapy Anesthesia Type: Conscious Sedation Estimated blood loss (mL): 20 ml Contrast Amount: 80 ml Total Radiation Dose: 820 mGy Post-Procedure Diagnosis Post-operative diagnosis: Chest pain Coronary artery disease Hypertension Hyperlipidemia KRISTIN PAUL MD Oct 29, 2022 10:09
[2022-10-29 10:24] LABS: CHOLESTEROL 156 MG/DL (< 200); HDL CHOLESTEROL 35 MG/DL (40-60); TRIGLYCERIDES 166 MG/DL (<150); VLDL CHOLESTEROL 33 MG/DL (5-40)
[2022-10-29] MEDS ORDERED: ATOR20TA49 PO (11:35)
== END 2022-10-29 14:35 | disposition home or self-care (01) ==
LOC: CATH 06:40 → SDC 10:18 → CATH 14:35
PROVIDERS: ATTEND Internal Medicine Cardiovascular Disease
DX: R07.9 Chest pain, unspecified (principal); I25.119 Atherosclerotic heart disease of native coronary artery with unspecified angina pectoris; I11.0 Hypertensive heart disease with heart failure; I50.22 Chronic systolic (congestive) heart failure; E78.5 Hyperlipidemia, unspecified; Z95.1 Presence of aortocoronary bypass graft; Z87.891 Personal history of nicotine dependence; Z28.310 Unvaccinated for COVID-19; Z79.899 Other long term (current) drug therapy; Z68.39 Body mass index [BMI] 39.0-39.9, adult; Z88.0 Allergy status to penicillin; Z91.048 Other nonmedicinal substance allergy status
CPT/HCPCS: 71045; 80053; 80061; 85027; 85610; 85730; 87081; 93005; 93459; C1760; C1894; 36415

== ENCOUNTER 2023-03-07 19:49 | Emergency (ER) | payer OTHER ==
[~2023-03-07 19:49] MED LIST changes: +ASPI-999 PO; +ATOR20TA49 PO; -CATHETER FLUSH 10 ML SYR IVP PRN; +CYCL10TA25 PO; +EMPA10TA PO; +FURO40TA4 PO; +LOSA100T57 PO; +MTP25TSR PO; -REGADENOSON 0.4 MG/5 ML SYR (LEXISCAN) IV ONE; +SERT-413 PO
[2023-03-07] MEDS ORDERED: LIDOCAINE/EPI 2% 1:100,00 (XYLOCAINE) 20 ML VIAL ONE (20:03)
[2023-03-07] MEDS ORDERED: LIDOCAINE/EPI 2% 1:100,00 (XYLOCAINE) 20 ML VIAL INJ ONE (20:15)
--- NOTE | 2023-03-07 21:16 | ED Fall/Injury ---
General Chief Complaint: Laceration Stated Complaint: FELL ON [facility] Triage Note: Pt was running down the street and fell and hit his face on the concrete. Pt presents with a laceration to his nose. Pt also has abrasions to bilateral knees and hands Source: patient History of Present Illness Date Seen by Provider: Mar 07, 2023 Time Seen by Provider: 19:53 Initial Comments 52-year-old male presenting with complaints of falling while running. He has multiple abrasions and lacerations. He has laceration across the bridge of his nose with bleeding. He does take Plavix as a antiplatelet and blood thinner medicine since he has a history of a bypass. He denies losing consciousness. He is not having any change in vision or nausea or vomiting. He has some soreness where he has the multiple abrasions and cuts. He has cut across the bridge of his nose and a flap section with this. Then he has abrasions on his forehead the rest of his nose bilateral hands bilateral knees and legs. He states his last tetanus shot was approximately 2 years ago when he had bypass surgery. Occurred: just prior to arrival Severity: moderate Injuries/Pain Location: face, upper extremity, lower extremity Context: tripped Loss of Consciousness: no loss of consciousness Modifying Factors: Worse With Movement Associated Symptoms (Fall): No Abdominal Pain, No Chest Pain, No Confusion, No Dizziness, No Headache, No Lightheadedness, No Muscle Spasms, No Nausea /Vomiting, No Neck Pain, No Ringing in Ears, No Seizures, No Shortness of Air, No Slurred Speech, No Trouble Walking, No Vision Changes Allergies and Home Medications Allergies Coded Allergies: Penicillins (Verified Allergy, Unknown, Rash, 02/19/21) Patient Home Medication List Home Medication List Reviewed: Yes Aspirin (Aspirin) 81 Mg Tab.chew, 81 MG PO DAILY, (Reported) Entered as Reported by: DWAIN MASON on 10/29/22 0820 Atorvastatin Calcium (Lipitor) 20 Mg Tablet, 20 MG PO DAILY Prescribed by: KRISTIN PAUL on 10/29/22 1135 Cyclobenzaprine HCl (Cyclobenzaprine HCl) 10 Mg Tablet, 10 MG PO DAILY, (Reported) Entered as Reported by: DWAIN MASON on 10/29/22 0820 Empagliflozin (Jardiance) 10 Mg Tablet, 10 MG PO DAILY, (Reported) Entered as Reported by: DWAIN MASON on 10/29/22819 Furosemide (Furosemide) 40 Mg Tablet, 40 MG PO DAILY, (Reported) Entered as Reported by: DWAIN MASON on 10/29/22819 Losartan Potassium (Losartan Potassium) 100 Mg Tablet, 100 MG PO DAILY, (Reported) Entered as Reported by: DWAIN MASON on 10/29/22819 Metoprolol Succinate (Metoprolol Succinate) 25 Mg Tab.er.24h, 50 MG PO DAILY, (Reported) Entered as Reported by: DWAIN MASON on 10/29/22819 Sertraline HCl (Sertraline HCl) 50 Mg Tablet, 50 MG PO HS, (Reported) Entered as Reported by: DWAIN MASON on 10/29/22819 Review of Systems Review of Systems Constitutional: No chills, No fever Eyes: Denies Blurred Vision, Denies Photophobia, Denies Vision Changes Ears, Nose, Mouth, Throat: denies ear pain, denies ear discharge; nose pain (At the site of laceration and abrasion); denies nose discharge, denies epistaxis Respiratory: No cough, No hemoptysis, No short of breath, No wheezing Cardiovascular: No chest pain Gastrointestinal: No nausea, No vomiting Genitourinary: No dysuria Musculoskeletal: see HPI Skin: see HPI Psychiatric/Neurological: Denies Numbness, Denies Paresthesia Past Ntxlenk-Wtxahw-Hptwzz Hx Patient Social History Tobacco Use?: No Use of E-Cig and/or Vaping dev: No Substance use?: No Alcohol Use?: No Pt feels they are or have been: No Seasonal Allergies Seasonal Allergies: No Past Medical History Surgery/Hospitalization HX: 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, hypertension Surgeries: Yes CABG, Gallbladder, Lumpectomy, Tonsillectomy Respiratory: No Pneumonia Currently Using CPAP: No Cardiac: Yes Heart Attack, High Cholesterol, Hypertension Neurological: No Genitourinary: No Gastrointestinal: No Musculoskeletal: No Endocrine: No HEENT: No Cancer: No Psychosocial: No Integumentary: No Blood Disorders: No Family Medical History Heart Disease, CAD Under 55 Years Old Physical Exam Vital Signs Vital Signs - First Documented 03/07/23 19:53 Pulse 70 Resp 18 B/P (MAP) 214/116 (148) Pulse Ox 98 O2 Delivery Room Air Capillary Refill : Less Than 3 Seconds Height, Weight, BMI Height: '" Weight: lbs. oz. kg; 39.37 BMI Method: General Appearance: no apparent distress, other (Bleeding from multiple sites on his face and especially the nose.) HEENT: PERRL/EOMI, TMs normal, pharynx normal; No photophobia; other (Negative pedroza sign, negative raccoon sign, no CSF otorrhea, no CSF rhinorrhea, no hemotympanums. He has laceration with a flap on the bridge of his nose. There is no crepitus or step-off. He has abrasion to the lower part of his nose and forehead.) Neck: non-tender, full range of motion, supple, normal inspection Cardiovascular: normal peripheral pulses, regular rate, rhythm Respiratory: chest non-tender, lungs clear, normal breath sounds Gastrointestinal: normal bowel sounds, non tender, soft, no pulsatile mass Extremities: normal range of motion, normal capillary refill, other (Multiple abrasions to the bilateral knees and lower legs as well as bilateral hands.) Neurologic/Psychiatric: manager leasing II-XII nml as tested, no motor/sensory deficits, alert, normal mood/affect, oriented x 3 Skin: warm/dry, other (Multiple abrasions all over his body. 3.1 cm laceration with a flap on the bridge of his nose.) Garfield Coma Score Best Eye Response: (4) Open Spontaneously Best Verbal Response: (5) Oriented Best Motor Response: (6) Obeys Commands Garfield Total: 15 Procedures/Interventions Wound Location: Nose Wound Length (cm): 3.1 Wound's Depth, Shape: linear, flap, contused tissue, sub Q Wound Explored: clean Irrigated w/ Saline (ccs): 150 Anesthesia: Lidocaine w/ Epi Volume Anesthetic (ccs): 3 Suture: Ethlion Suture Size: 4-0 Number of Sutures: 5 Layer Closure?: 1 Sterile Dressing Applied?: Yes Progress After verbal consent was obtained from the patient the wound was cleaned with chlorhexidine scrub soap and sterile water. Using lidocaine with epinephrine a total of 3 mL were infiltrated to help with anesthetic effect of the nasal laceration and flap. Then using 5-0 Ethilon a total of 5 simple interrupted stitches were placed to approximate the wound edges. Patient tolerated pr ocedure well without any immediate complication. Sterile clean dressing applied with antibiotic ointment. Counseled on follow-up and return precautions. Advised to have the stitches out in 5 to 7 days. Progress/Results/Core Measures Results/Orders My Orders Orders - TATY ZAVALETA MD Lidocaine/Epi 2% 1:100,000 (Xylocaine/Ep (03/07/23 20:03) Lidocaine/Epi 2% 1:100,000 (Xylocaine/Ep (03/07/23 20:15) Suture Set At Bedside (03/07/23 20:10) Wound Dressing-Ed (03/07/23 20:10) Ct Head/Maxillofacial Wo (03/07/23 20:47) Medications Given in ED Current Medications Medications Dose Ordered Sig/Leslie Route Start Time Stop Time Status Last Admin Dose Admin Lidocaine/ Epinephrine 20 ml ONCE ONCE INJ 03/07/23 20:15 03/07/23 20:16 DC 03/07/23 20:46 20 ML Vital Signs/I&O 03/07/23 19:53 Pulse 70 Resp 18 B/P (MAP) 214/116 (148) Pulse Ox 98 O2 Delivery Room Air Blood Pressure Mean: 148 Progress Progress Note #1: Progress Note Potential diagnosis of intracranial hemorrhage, facial fracture, skull fracture, multiple abrasions, laceration. On physical exam patient did not have findings for intracranial hemorrhage or skull fracture. He did have active bleeding on his bridge of his nose where he had a laceration with a flap. He verbally consented for repair of the laceration with stitches. Since he was actively bleeding unable to use glue or Steri-Strips. We will obtain a CT scan of the head and face after controlling bleeding with stitches. Since he takes Plavix as a blood thinner and had facial injury will evaluate for CT evidence of skull fracture or intracranial he morrhage. Patient is up-to-date on tetanus booster so that is not needed tonight. Progress Note #2: Time: 21:18 Progress Note On my personal interpretation and review his CT scan of the head and face without contrast showed minimally displaced nasal bone fractures. I did not appreciate any acute skull fracture or intracranial hemorrhage. Awaiting radiology over read. Progress Note #3: Time: 21:24 Progress Note I reviewed the radiologist report on the CT head and face without contrast. They did see a nasal bone fractures bilaterally with minimal displacement. There was no intracranial hemorrhage or skull fracture. He had an area of low- attenuation along the left basal ganglia but does not have any evidence of acute stroke or headache. This may be an old finding or artifact. Counseled patient on the nasal bone fracture as well as care of wounds and laceration but repaired using stitches. Encouraged to have the stitches out in 7 to 10 days. Ice and elevate his head to help with pain and swelling. Keep wound clean and dry for 24 hours and then may wash with soap and water but do not soak it. May use acetaminophen for pain without interfering with blood pressure or his blood thinners. Patient did have elevated blood pressure here in the emergency department but states that it has been running high and he is working with the clinic to try and get better control of his blood pressure. Encouraged to take his medicine when he gets home to help control his blood pressure. He was not having a significant headache, change in vision, chest pain, nausea, vomiting to indicate intracranial hemorrhage or hypertensive emergency. Diagnostic Imaging Diagonstic Imaging: CT Plain Films/CT/US/NM/MRI: facial bones, head Comments NAME: MERON [facility]ON [facility] REC#: [id number] PT STATUS: REG ER : 1970 PHYSICIAN: TATY ZAVALETA MD ADMIT DATE: 03/07/23/ER FS Draft Date of Exam:03/07/23 CT HEAD/MAXILLOFACIAL WO Procedure: CT head and maxillofacial without contrast. Technique: Multiple contiguous axial images were obtained through the head and facial bones without the use of intravenous contrast. Auto Exposure Controls were utilized during the CT exam to meet ALARA standards for radiation dose reduction. Date: March 07, 2023. Indication: 52-year-old male, hit head and face. Head and face pain. Comparison: None. Findings: There is no identified acute fracture of the skull. The temporomandibular joints are normally aligned. The mandible is intact. There are mildly displaced bilateral nasal bone fractures. The bony nasal septum deviates slightly to the left of midline. There is no identified acute maxillofacial bone fracture. There is a polypoid lesion in the right sphenoid sinus likely reflecting a mucous retention cyst. There is nonspecific mild paranasal sinus opacification additionally present. The mastoid air cells and middle ears are well-aerated. The globes are grossly intact. There is no retro-orbital hematoma. There is soft tissue swelling adjacent of the nose. There is extensive dental disease. The ventricles and additional CSF spaces are within normal limits in size and configuration for patient age. There is an area of low-attenuation in the region of the left basal ganglia which is not quite of CSF attenuation. Impression: 1. Bilateral mildly displaced nasal bone fractures. 2. No additional identified acute maxillofacial bone fracture. 3. Grossly intact globes and no retro-orbital hematoma. 4. Low attenuation near the left basal ganglia which may reflect remote or prior infarct although is not of CSF attenuation for definitive diagnosis. Recommend correlation for possible symptoms. 5. No evidence of acute intracranial hemorrhage. Dictated on workstation # [id number] Dict: 03/07/232106 Trans: 03/07/232120 [facility] [id number] Interpreted by: SANJUANITA SAEED MD Electronically signed by: Reviewed: Reviewed by Me (I have reviewed the radiologist report at 2123) Departure Impression Primary Impression: Nasal bones, closed fracture Qualified Codes: S02.2XXA - Fracture of nasal bones, initial encounter for closed fracture Additional Impressions: Laceration without foreign body of nose, initial encounter Abrasion, multiple sites Fall while running Qualified Codes: W19.XXXA - Unspecified fall, initial encounter; Y93.02 - Activity, running Disposition: 01 HOME, SELF-CARE Condition: Stable Departure-Patient Inst. Decision time for Depature: 21:25 Referrals: NO,LOCAL PHYSICIAN (PCP) Primary Care Physician [facility] Patient Instructions: Nose Fracture ED, Laceration Repair With Stitches ED, Abrasions ED, Wound Care ED Add. Discharge Instructions: Keep wounds clean with soap and water. Try to keep the wounds on the nose that were closed with stitches dry for the first 24 hours before getting them wet. Avoid any pools or swimming until the laceration has healed and the stitches are removed. You may apply ice for 15 to 20 minutes every few hours to help with pain and swelling. Try to keep your head elevated to 30 to 45 degrees while sleeping for the next few nights to help prevent worsening swelling. The flatter your head is the more the injuries are going to swell and bruise on your face. The stitches should be removed in approximately 7 to 10 days. You could either return here to the emergency department or see your primary care provider to have these removed. You may apply triple antibiotic or antibiotic ointment [id number] 1-2 times a day as needed to help prevent infection. Follow-up with the clinic for continued concerns. All discharge instructions reviewed with patient and/or family. Voiced und erstanding. TATY ZAVALETA MD Mar 07, 2023 21:16
--- NOTE | 2023-03-07 21:22 | Diagnostic Imaging Report ---
Procedure: CT head and maxillofacial without contrast. Technique: Multiple contiguous axial images were obtained through the head and facial bones without the use of intravenous contrast. Auto Exposure Controls were utilized during the CT exam to meet ALARA standards for radiation dose reduction. Date: March 07, 2023. Indication: 52-year-old male, hit head and face. Head and face pain. Comparison: None. Findings: There is no identified acute fracture of the skull. The temporomandibular joints are normally aligned. The mandible is intact. There are mildly displaced bilateral nasal bone fractures. The bony nasal septum deviates slightly to the left of midline. There is no identified acute maxillofacial bone fracture. There is a polypoid lesion in the right sphenoid sinus likely reflecting a mucous retention cyst. There is nonspecific mild paranasal sinus opacification additionally present. The mastoid air cells and middle ears are well-aerated. The globes are grossly intact. There is no retro-orbital hematoma. There is soft tissue swelling adjacent of the nose. There is extensive dental disease. The ventricles and additional CSF spaces are within normal limits in size and configuration for patient age. There is an area of low-attenuation in the region of the left basal ganglia which is not quite of CSF attenuation. Impression: 1. Bilateral mildly displaced nasal bone fractures. 2. No additional identified acute maxillofacial bone fracture. 3. Grossly intact globes and no retro-orbital hematoma. 4. Low attenuation near the left basal ganglia which may reflect remote or prior infarct although is not of CSF attenuation for definitive diagnosis. Recommend correlation for possible symptoms. 5. No evidence of acute intracranial hemorrhage. Dictated by: Dictated on workstation # [id number]
[2023-03-07 21:30] VITALS: BP 201/104
== END 2023-03-07 21:31 | disposition home or self-care (01) ==
LOC: EDUNIT# 19:49 → ER FS 19:51
DX: S02.2XXA Fracture of nasal bones, initial encounter for closed fracture (principal); S80.212A Abrasion, left knee, initial encounter; S80.211A Abrasion, right knee, initial encounter; S60.512A Abrasion of left hand, initial encounter; S60.511A Abrasion of right hand, initial encounter; S80.812A Abrasion, left lower leg, initial encounter; S80.811A Abrasion, right lower leg, initial encounter; Z95.1 Presence of aortocoronary bypass graft; Z28.310 Unvaccinated for COVID-19; Z79.02 Long term (current) use of antithrombotics/antiplatelets; Z79.01 Long term (current) use of anticoagulants; W18.39XA Other fall on same level, initial encounter; W22.8XXA Striking against or struck by other objects, initial encounter; Y93.02 Activity, running; Y92.410 Unspecified street and highway as the place of occurrence of the external cause
CPT/HCPCS: 12011; 70450; 70486

== ENCOUNTER 2023-06-16 16:29 | Emergency (ER) | payer SELFPAY ==
[~2023-06-16] VITALS: Ht 180 cm; Wt 112.0 kg
[~2023-06-16 16:29] MED LIST changes: -LOSA100T57 PO; +LOSA100T58 PO
[2023-06-16 16:59] VITALS: BP 190/100
[2023-06-16] MEDS ORDERED: ONDANSETRON 4 MG ORAL DISSOLVE TABLET PO STA (17:01)
--- NOTE | 2023-06-16 17:08 | ED Cough/URI ---
General Chief Complaint: Cough/Cold/Flu Symptoms Stated Complaint: FEVER,ABD PAIN,COUGH Nursing Triage Note: Patient has presented to ER with cc of waking up with body aches, fever, cough, headache, nausea, decreased appetite, and not feeling well. He reports that throughout the day he has just continued to feel worse. Source: patient Exam Limitations: no limitations History of Present Illness Date Seen by Provider: Jun 16, 2023 Time Seen by Provider: 16:31 Initial Comments 52-year-old male with past medical history of CAD status post CABG coming in due to 1 day of fever, body aches, cough, nausea, decreased appetite, and general malaise. He is unsure if he has been around anyone sick. He is taken no fixa-jut-namrcfg medicines. Otherwise denying any neck stiffness, chest pain, shortness of breath, vomiting, diarrhea, or any other concerns. Allergies and Home Medications Allergies Coded Allergies: Penicillins (Verified Allergy, Unknown, Rash, 02/19/21) Patient Home Medication List Home Medication List Reviewed: Yes Acetaminophen (Tylenol Extra Strength) 500 Mg Tablet, 1,000 MG PO Q8H Prescribed by: ZAID GARCIA on 06/16/23 1733 Aspirin (Aspirin) 81 Mg Tab.chew, 81 MG PO DAILY, (Reported) Entered as Reported by: DWAIN MASON on 10/29/22 0820 Atorvastatin Calcium (Lipitor) 20 Mg Tablet, 20 MG PO DAILY Prescribed by: KRISTIN PAUL on 10/29/22 1135 Cyclobenzaprine HCl (Cyclobenzaprine HCl) 10 Mg Tablet, 10 MG PO DAILY, (Reported) Entered as Reported by: DWAIN MASON on 10/29/22 0820 Empagliflozin (Jardiance) 10 Mg Tablet, 10 MG PO DAILY, (Reported) Entered as Reported by: DWAIN MASON on 10/29/22 0820 Furosemide (Furosemide) 40 Mg Tablet, 40 MG PO DAILY, (Reported) Entered as Reported by: DWAIN MASON on 10/29/22 0820 Losartan Potassium (Losartan Potassium) 100 Mg Tablet, 100 MG PO DAILY, (Reported) Entered as Reported by: DWAIN MASON on 10/29/22 0820 Metoprolol Succinate (Metoprolol Succinate) 25 Mg Tab.er.24h, 50 MG PO DAILY, (Reported) Entered as Reported by: DWAIN MASON on 10/29/22 0820 Ondansetron (Ondansetron Odt) 4 Mg Tab.rapdis, 4 MG SL Q6H PRN for NAUSEA/VOMITING Prescribed by: ZAID GARCIA on 06/16/23 1733 Sertraline HCl (Sertraline HCl) 50 Mg Tablet, 50 MG PO HS, (Reported) Entered as Reported by: DWAIN MASON on 10/29/22 0820 Review of Systems Review of Systems Constitutional: fever, malaise EENTM: nose congestion Respiratory: cough Cardiovascular: No chest pain Gastrointestinal: nausea; No vomiting Musculoskeletal: no symptoms reported Skin: no symptoms reported Psychiatric/Neurological: No Symptoms Reported Hematologic/Lymphatic: No Symptoms Reported Past Lvnxwzu-Sgkakw-Pluglc Hx Patient Social History Tobacco Use?: No Use of E-Cig and/or Vaping dev: No Substance use?: No Alcohol Use?: No Seasonal Allergies Seasonal Allergies: No Past Medical History Surgery/Hospitalization HX: 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 oz. kg; 34.00 BMI Method: General Appearance: WD/WN, no apparent distress Eyes: Bilateral Eye Normal Inspection HEENT: PERRL/EOMI, normal ENT inspection, pharynx normal Neck: non-tender, full range of motion, supple, normal inspection Respiratory: chest non-tender, lungs clear, normal breath sounds, no r espiratory distress, no accessory muscle use Cardiovascular: regular rate, rhythm, no edema Gastrointestinal: normal bowel sounds, non tender, soft; No distended, No guarding, No rebound Extremities: normal range of motion, non-tender, normal inspection, no pedal edema, no calf tenderness, normal capillary refill Neurologic/Psychiatric: no motor/sensory deficits, alert, normal mood/affect Skin: normal color, warm/dry Procedures/Interventions Suture Size: 4-0 Progress/Results/Core Measures Suspected Sepsis SIRS Temperature: Pulse: 100 Respiratory Rate: 18 Blood Pressure 190 /100 Mean: 130 Results/Orders Lab Results Laboratory Tests Test 06/16/23 16:45 Range/Units Influenza Type A (RT-PCR) Not Detected Not Detecte Influenza Type B (RT-PCR) Not Detected Not Detecte SARS-CoV-2 RNA (RT-PCR) Not Detected Not Detecte My Orders Orders - ZAID GARCIA MD Influenza A And B By Pcr (06/16/23 16:41) Covid 19 Inhouse Test (06/16/23 16:41) Acetaminophen Tablet (Acetaminophen Ta (06/16/23 17:15) Ondansetron Oral Dissolve Tab (Ondanset (06/16/23 17:01) Medications Given in ED Current Medications Medications Dose Ordered Sig/Leslie Route Start Time Stop Time Status Last Admin Dose Admin Acetaminophen 1,000 mg ONCE ONCE PO 06/16/23 17:15 06/16/23 17:16 DC 06/16/23 17:08 1,000 MG Vital Signs/I&O 06/16/23 06/16/23 16:59 17:08 Temp 39.0 39.0 Pulse 100 Resp 18 B/P (MAP) 190/100 (130) Pulse Ox 96 Capillary Refill : Blood Pressure Mean: 130 Progress Note : Progress Note 52-year-old male with above history coming in due to flulike symptoms. ABCs were intact and vitals are stable on presentation although he is febrile. Physical exam reassuring including no flank pain, clear lungs, no meningismus no rash, and overall no red flags. He is not having any hematuria, flank pain, or any other signs of kidney infection or kidney stones. He was given Tylenol for his fever and Zofran for nausea. Flu and COVID testing were sent and were negative. Vitals otherwise unremarkable, lungs clear, well-appearing. I believe he is stable for discharge with outpatient follow-up. He was sent home with strict return precautions Departure Impression Primary Impression: Flu-like symptoms Disposition: HOME, SELF-CARE Condition: Stable Departure-Patient Inst. Decision time for Depature: 17:35 Referrals: NO,LOCAL PHYSICIAN (PCP/Family) Primary Care Physician Patient Instructions: Viral Syndrome (DC) Add. Discharge Instructions: This appears to be a viral illness. Your flu and COVID test were negative. It will likely be 3 days or so of fever and body aches before you start feeling better. Take Tylenol as needed for the fever and body aches. Take Zofran as needed for nausea. These were sent to your pharmacy. Scripts Acetaminophen (Tylenol Extra Strength) 500 Mg Tablet 1000 MG PO Q8H for 7 Days, #42 TAB Prov: ZAID GARCIA MD 06/16/23 Ondansetron (Ondansetron Odt) 4 Mg Tab.rapdis 4 MG SL Q6H PRN for NAUSEA/VOMITING for 5 Days, #20 TAB Prov: ZAID GARCIA MD 06/16/23 Work/School Note: Work Release Form Date Seen in the Emergency Department: Jun 16, 2023 Return to Work: Jun 18, 2023 Restrictions: Return-No Fever (24hrs) ZAID GARCIA MD Jun 16, 2023 17:08
[2023-06-16] MEDS ORDERED: ACETAMINOPHEN 500 MG TABLET PO ONE (17:15)
[2023-06-16] MEDS ORDERED: ONDA4TAB11 SL (17:33)
[2023-06-16] MEDS ORDERED: ACET-2267 PO (17:33)
== END 2023-06-16 17:36 | disposition home or self-care (01) ==
LOC: EDUNIT# 16:29 → ER FS 16:31
DX: R50.9 Fever, unspecified (principal); R05.9 Cough, unspecified; R11.0 Nausea; R63.0 Anorexia; R53.81 Other malaise; Z28.310 Unvaccinated for COVID-19
CPT/HCPCS: 87636; 99283